=== PATIENT | female | born 2000 | race African-American/Black ===

== ENCOUNTER 2020-08-17 21:41 | Emergency (ER) | payer MEDICAID ==
--- NOTE | 2020-08-17 22:11 | ER Document Report ---
ED Psych Disorder / Suicide - General Chief Complaint: Psych Problem Stated Complaint: PSYCH EVAL Time Seen by Provider: 08/17/20 21:59 Mode of Arrival: Ambulatory Information source: Patient Notes: HPI; 20-year-old female presented to the emergency room with her mom and the police with suicidal ideation and suicide attempt x2 today. Per mom patient started to walk out in traffic during a latter-day service this evening also took a fork and knife in the attempt to stab her self. Patient has had previous suicide attempts. Recently relocated here from [place] is on Risperdal and trazodone. Patient states "I am hearing voices that are telling me to hurt myself". She denies any homicidal ideation. PE: Alert and oriented x3. Flat affect. Continues to have suicidal thoughts. Lungs: Clear to auscultation without rales, rhonchi, wheezes. Heart: Regular rate rhythm without murmurs, rubs, gallops. Patient will be put on IVC papers per Dr. Fuentes I have greeted and performed a rapid initial assessment of this patient. A comprehensive ED assessment and evaluation of the patient, analysis of test results and completion of the medical decision making process will be conducted by additional ED providers. I have specifically instructed the patient or family members with the patient to immediately return to any nursing staff should anything change in the patient's condition or with their chief complaint. TRAVEL OUTSIDE OF THE [place] IN LAST 30 DAYS: No
--- NOTE | 2020-08-17 22:15 | ER Document Report ---
ED Medical Screen (RME) - General Chief Complaint: Psych Problem Stated Complaint: PSYCH EVAL Time Seen by Provider: 08/17/20 21:59 Mode of Arrival: Ambulatory Information source: Patient, Relative Notes: HPI; 20-year-old female presents emergency room with her mom and police custody for suicidal ideation and suicide attempts earlier today. Per mom she tried to walk out in traffic earlier this evening during mandaen service later this evening she grabbed a fork and knife in an attempt to stab herself. Mom was able to stop both attempts. Patient has had previous suicide attempts by pj ing herself in the head. Patient states "I am hearing voices that are telling me to hurt myself". Patient continues to have suicidal thoughts. Denies any homicidal ideation. PE: Alert and oriented x3. Flat affect. Continues to have suicidal thoughts but denies any homicidal ideation. Lungs: Clear to auscultation without rales, rhonchi, wheezes. Heart: Regular rate rhythm without murmurs, rubs, gallops. Patient will be put on IV C papers per ED physician Dr. Mckeon. I have greeted and performed a rapid initial assessment of this patient. A comprehensive ED assessment and evaluation of the patient, analysis of test results and completion of the medical decision making process will be conducted by additional ED providers. I have specifically instructed the patient or family members with the patient to immediately return to any nursing staff should anything change in the patient's condition or with their chief complaint. TRAVEL OUTSIDE OF THE [place] IN LAST 30 DAYS: No
[2020-08-17 23:00] LABS: ABSOLUTE EOSINOPHILS # (AUTO) 0.1 10^3/uL (0.0-0.6); ABSOLUTE MONOCYTES (AUTO) 0.7 10^3/uL (0.1-1.4); BASOPHILS % (AUTO) 0.2 % (0-2); EOSINOPHILS % (AUTO) 1.6 % (0-6); HEMATOCRIT 34.6 % (36.0-47.0); HEMOGLOBIN 11.2 g/dL (12.0-15.5); MEAN CORPUSCULAR HGB CONC 32.3 g/dL (32.0-36.0); MEAN CORPUSCULAR VOLUME 71 fl (80-97); MONOCYTES % (AUTO) 10.8 % (3-13); PLATELET COUNT 248 10^3/uL (150-450); RED BLOOD COUNT 4.85 10^6/uL (3.72-5.28); RED CELL DISTRIBUTION WIDTH 15.2 % (11.5-14.0); SEGMENTED NEUTROPHILS % (AUTO) 58.4 % (42-78); TOTAL CELLS COUNTED % (AUTO) 100 %; WHITE BLOOD COUNT 6.9 10^3/uL (4.0-10.5)
[2020-08-17 23:26] LABS: ALBUMIN 4.5 g/dL (3.5-5.0); ALKALINE PHOSPHATASE 79 U/L (38-126); ANION GAP 12 (5-19); ASPARTATE AMINO TRANSFERASE 21 U/L (14-36); BILIRUBIN,DIRECT 0.2 mg/dL (0.0-0.4); BILIRUBIN,TOTAL 0.8 mg/dL (0.2-1.3); BLOOD UREA NITROGEN 14 mg/dL (7-20); CALCIUM 9.4 mg/dL (8.4-10.2); CARBON DIOXIDE 26 mmol/L (22-30); CHLORIDE 102 mmol/L (98-107); GLUCOSE 87 mg/dL (75-110); POTASSIUM 4.2 mmol/L (3.6-5.0); TOTAL PROTEIN 7.4 g/dL (6.3-8.2)
[2020-08-17 23:29] LABS: ACETAMINOPHEN < 10 ug/mL (10-30); ALCOHOL < 10 mg/dL (NONE DETECTED)
[2020-08-17 23:30] LABS: SALICYLATE < 1.0 mg/dL (2.0-20.0)
[2020-08-17 23:53] LABS: APPEARANCE,URINE CLOUDY; BILIRUBIN,URINE NEGATIVE (NEGATIVE); COLOR,URINE YELLOW; GLUCOSE, URINE NEGATIVE (NEGATIVE); KETONES,URINE 80 mg/dL (NEGATIVE); LEUKOCYTE ESTERASE,URINE NEGATIVE (NEGATIVE); NITRITE,URINE NEGATIVE (NEGATIVE); PROTEIN,URINE 100 mg/dL (NEGATIVE); URINE SPECIFIC GRAVITY 1.035
[2020-08-18 00:14] LABS: URINE AMPHETAMINES SCREEN NEGATIVE; URINE BARBITURATES SCREEN NEGATIVE; URINE BENZODIAZEPINES SCREEN NEGATIVE; URINE COCAINE SCREEN NEGATIVE; URINE MARIJUANA (THC) SCREEN NEGATIVE; URINE METHADONE SCREEN NEGATIVE; URINE PHENCYCLIDINE SCREEN NEGATIVE
[2020-08-18] MEDS ORDERED: LORAZEPAM 1 MG TABLET PO ONE (00:19)
--- NOTE | 2020-08-18 00:24 | EKG REPORT ---
SEVERITY:- NORMAL ECG - SINUS RHYTHM : Confirmed by: Janee Wang 18-Aug-2020 00:23:26
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
[2020-08-18] MEDS ORDERED: CHLORPROMAZINE HCL INJ 25 MG/1 ML AMPULE IM ONE ×2 (14:52→21:55)
--- NOTE | 2020-08-18 14:56 | ER Document Report ---
Doctor's Note Notes: 08/18/20 14:55 Patient is coming out of the room grabbing at the staff. I spoke with Dr. Salazar from the psychiatric team will give Thorazine 50 mg intramuscular at this time.
[2020-08-18] MEDS ORDERED: BENZTROPINE MESYLATE 1 MG TABLET PO ONE (21:53)
[2020-08-19] MEDS ORDERED: CHLORPROMAZINE HCL INJ 25 MG/1 ML AMPULE IM ONE (12:32)
[2020-08-19] MEDS ORDERED: CHLORPROMAZINE HCL INJ 25 MG/1 ML AMPULE ONE (12:32)
--- NOTE | 2020-08-19 12:34 | ER Document Report ---
Doctor's Note Notes: 08/19/20 12:33 Patient is again acting out following staff and attempting to grab at staff. Psychiatric team have not placed standing medications for this patient yet I will give the patient Thorazine as she seemed to respond well to that yesterday.
[2020-08-19] MEDS ORDERED: CHLORPROMAZINE HCL INJ 25 MG/1 ML AMPULE IM PRN (14:54)
[2020-08-19] MEDS ORDERED: CHLORPROMAZINE HCL INJ 25 MG/1 ML AMPULE IV SCH (15:00)
[2020-08-19] MEDS ORDERED: BENZTROPINE MESYLATE INJ 2 MG/2 ML AMPULE IM SCH (15:00)
[2020-08-19] MEDS: BENZTROPINE MESYLATE INJ 2 MG/2 ML AMPULE IM SCH (18:11)
[2020-08-19] MEDS: CHLORPROMAZINE HCL INJ 25 MG/1 ML AMPULE IM SCH ×2 (18:11→23:16)
[2020-08-20] MEDS: CHLORPROMAZINE HCL INJ 25 MG/1 ML AMPULE IM SCH ×4 (05:46→23:12)
[2020-08-20] MEDS: BENZTROPINE MESYLATE INJ 2 MG/2 ML AMPULE IM SCH ×2 (11:10→18:50)
--- NOTE | 2020-08-20 12:51 | PSYCHOLOGICAL NOTE ---
Psych Note - Psych Note Date seen by psych provider: 08/20/20 Time seen by psych provider: 10:45 Psych Note: Patient denied consent for mother to be part of plan of care Check in conducted with patient: Patient does engage with clinician this morning. Patient reports she has provider in [place], Ms. Meyers with [facility]. She reports she came to [facility] ED because she was trying to hurt herself. She denies this ever happening before or being inpatient psychiatric treatment previously (clinician notes patient has been inpatient psychiatric treatment per family approximately one year ago in [place]). Patient denied consent for her mother to part of her plan of care, she requests Ms. Meyers be included. Patient denies current thoughts of wanting to harm herself and denies any further questions or concerns at this time. Mood and affect are currently flat. Eye Contact is well maintained. Clinician spoke with patient's mother to provider general procedure information. Clinician explained that currently, the patient has denied consent for mother to part of plan of care. Clinician confirms patient will be asked again throughout the day and encourage the patient to provided consent for a local support. Patient is currently her own legal guardian, however, lives with her mother. Patient's mother reports she is her "youth career specialist." She requested information on how to obtain legal guardianship; contact information to [facility] is provided. Patient's mother confirms all questions have been addressed and current has no further questions or concerns. Medication recommendations per [facility]'s contracted psychiatrist are as follows: Thorazine 50mg every 6 hours Cogentin 1mg twice daily Impression/Plan: Patient is recommended for continued IVC. Patient only minimally engages with clinician. Paperwork has been faxed to [facility] and [facility] for placement consideration. Dr. Slaazar was consulted on the care and management of this patient; attending physician is in agreement with recommendations and disposition.
--- NOTE | 2020-08-20 18:56 | ER Document Report ---
Doctor's Note Notes: 08/20/20 18:56 Patient has been ambulatory today has not caused a significant disturbance requiring restraint. Has been evaluated by the psychiatric team who are attempting placement at [place] or [place].
[2020-08-21] MEDS: CHLORPROMAZINE HCL INJ 25 MG/1 ML AMPULE IM SCH ×2 (06:07→12:23)
[2020-08-21] MEDS: BENZTROPINE MESYLATE INJ 2 MG/2 ML AMPULE IM SCH (09:53)
--- NOTE | 2020-08-21 11:03 | PSYCHOLOGICAL NOTE ---
Psych Note - Psych Note Date seen by psych provider: 08/21/20 Time seen by psych provider: 10:35 Psych Note: Patient denied consent for mother to be part of plan of care Check in conducted with patient: Patient continues to present flat and has not been eating. patient denies any concerns currently. Patient has been demonstrating disorganized thought processes and in need of frequent redirection. Medication recommendations per [facility]'s contracted psychiatrist are as follows: Thorazine 50mg every 6 hours Cogentin 1mg twice daily Impression/Plan: Patient is recommended for continued IVC. Patient only minimally engages with clinician. Paperwork has been faxed to [facility] and [facility] for placement consideration. Dr. Salazar was consulted on the care and management of this patient; attending physician is in agreement with recommendations and disposition.
[2020-08-21] MEDS: CHLORPROMAZINE HCL 50 MG TABLET PO SCH ×2 (12:53→17:59)
--- NOTE | 2020-08-21 15:44 | ER Document Report ---
Doctor's Note Notes: 08/21/20 15:43 Patient is still ambulatory in the room but has not had any violent behavior so far today has taken her oral medications. Pending placement still per the psychiatric team
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
[2020-08-21] MEDS: BENZTROPINE MESYLATE 1 MG TABLET PO SCH (18:00)
[2020-08-22] MEDS: CHLORPROMAZINE HCL 50 MG TABLET PO SCH ×4 (01:11→17:57)
[2020-08-22] MEDS: BENZTROPINE MESYLATE 1 MG TABLET PO SCH ×2 (09:57→17:57)
--- NOTE | 2020-08-22 12:23 | ER Document Report ---
Doctor's Note Notes: 08/22/20 12:21 Patient's vital signs, previous labs, diagnostic imaging reviewed. Reviewed mental health notes, nurses notes and previous vital signs. Patient is in no distress at this time. Resting comfortably in the bed. Has no acute concerns. Patient resting comfortably. In no acute distress. Interacts appropriately with the provider. A&P: Pending mental health placement. 08/22/20 12:21
--- NOTE | 2020-08-22 21:05 | PSYCHOLOGICAL NOTE ---
Psych Note - Psych Note Date seen by psych provider: 08/22/20 Time seen by psych provider: 11:57 - Evaluation with patient from [id number]. Psych Note: Patient is a 20 year old female in the ED on a FULL Involuntary Commitment since 08/18/2020 for psychosis, suicidal ideation and history of Schizophrenia. Patient reported "good" when asked how she was doing today. She denied suicidal and homicidal ideation. Reminded her of when she was going into the hallways and other patients' rooms. Asked her what she felt was going on at that time. She responded with "I was hearing voices." When asked if she was currently hearing voices she said "no not now." She reported she felt she was better than when she first came in. She identified she saw her mother yesterday. As the afternoon went on observed patient often standing in her doorway. At one point a patient radiation safety officer had to redirect her back to her room and she seemed to listen after a couple prompts verses several. Attending medical staff noted they have to put time limits on her bathroom breaks as she will stay in there for long periods. Also medical staff reported patient does not seem to sleep much and has been picking at her meals which mother told medical staff is not typical of her (she normally has a healthy appetite). Mother also informed medical staff she felt a trigger to patient's crisis was her cousin passing away which could very well be. Clinical Presentation: Psychosis- Auditory command hallucinations Suicidal ideation with attempts (walking into traffic twice, putting butter knife to neck) History Of Schizophrenia Recent move (transition/adjustment) Impression/Plan: Recommendation to maintain FULL Involuntary Commitment. Patient has just started to answer all questions and follow redirection within a couple prompts versus several. Want to see some maintenance with this improved behavior. Mother informed medical staff she felt a trigger to crisis was patient's cousin passing away which could very well be the case. Consulted with Dr. Salazar regarding the management and care of patient. ED Physician in agreement with recommendations.
[2020-08-23] MEDS: CHLORPROMAZINE HCL 50 MG TABLET PO SCH ×4 (00:31→16:45)
[2020-08-23] MEDS: BENZTROPINE MESYLATE 1 MG TABLET PO SCH ×2 (09:50→18:06)
--- NOTE | 2020-08-23 12:33 | PSYCHOLOGICAL NOTE ---
Psych Note - Psych Note Date seen by psych provider: 08/23/20 Time seen by psych provider: 10:45 - Observation at 1045. Interaction with patient at 1053. Psych Note: Patient is a 20 year old female in the Emergency Department on Full Involuntary Commitment for psychosis, suicidal ideation and history of Schizophrenia. Observed patient standing in doorway of her room. She started to come out and the patient safety professional redirected her verbally to stay in room. Patient listened on the first prompt. Patient asked for a sandwich and medical staff noted she did not eat breakfast. Medical staff has reported and documented patient often just throws her food tray in trash as soon as it is provided to her. Patient safety professional offered patient a sandwich maybe 10 minutes after she asked for one and patient declined it. When this clinician asked patient if she wanted a sandwich she said no, said she didn't want anything to eat, then mentioned fruit. When asked why she throws her food trays away she stated "I don't like the food." She reported "I'm good" when asked how she was doing today. From [phone] called mother Devika ([phone]) to discuss potential plan of care for discharge tomorrow (08/24/2020). Mother was made aware of medications adjustments taking place this evening to prepare for discharge. She was informed how patient identified yesterday the reason she was walking out of her room.into the hallway/into other patients' rooms was because she was hearing voices. Also the reason she throws food trays away being because she does not like the hospital food. Mother made aware patient able to be redirected and without physical aggression the past 2-3 days. Mother was in agreement with discharge for tomorrow (08/24/2020). She stated she has [facility] an hour and a half away from [phone] so could come get patient after. Mother also noted patient has a telemed appointment Tuesday (08/25/2020) with her [place] [facility]. She stated they have done what is needed for Medicaid transition and just waiting for it to be effective. Clinical Presentation: Psychosis- Auditory command hallucinations Suicidal ideation with attempts (walking into traffic twice, putting butter knife to neck) History Of Schizophrenia Recent move (transition/adjustment) Medication recommendations made by the psychiatric medication provider Dr. Whitney BENITEZ, includes: Change Thorazine to 50MG every 8 hours scheduled for psychosis Change Cogentin to 1MG daily to curb tremor side effects often associated with antipsychotic medications Add Zyprexa 2.5MG twice a day for mood stabilization/address attentional issues/impulse control Add Clonidine 0.1MG at night for calming effect/sleep Impression/Plan: Recommendation to maintain FULL Involuntary Commitment. The past two days patient has shown improvement. Making additional medication changes today now that there has been stabilization with respect to psychosis (hearing voices), not becoming physical or hitting staff, and following redirec tion better. Plan to discharge to mother tomorrow (08/24/2020) given felt to be stabilized from a behavioral standpoint. Consulted with Dr. Salazar regarding the management and care of patient. ED Physician in agreement with recommendations.
[2020-08-23] MEDS ORDERED: CLONIDINE HCL 0.1 MG TABLET PO ONE (16:13)
--- NOTE | 2020-08-23 16:15 | ER Document Report ---
Doctor's Note Notes: 08/23/20 16:14 Patient's vital signs and previous labs, diagnostic images reviewed. Reviewed mental health notes, nurse's notes and previous providers notes. VSS. Pt is in no distress at this time. Denies any SI or HI. General: A&Ox3. Answers questions appropriately. Heart: RRR Lungs: CTAB Psych: Flat affect A/P: Continue monitoring and rec's per MH. Normal diet will likely discharge home.
[2020-08-23] MEDS: OLANZAPINE 2.5 MG TABLET PO SCH (18:06)
[2020-08-24] MEDS: CHLORPROMAZINE HCL 50 MG TABLET PO SCH ×3 (00:16→16:15)
[2020-08-24] MEDS: OLANZAPINE 2.5 MG TABLET PO SCH ×2 (09:57→17:22)
[2020-08-24] MEDS ORDERED: BENZTROPINE MESYLATE 1 MG TABLET PO SCH (10:00)
--- NOTE | 2020-08-24 13:18 | ER Document Report ---
Doctor's Note Notes: 08/24/20 13:16 Patient's vital signs previous labs, diagnostic imaging reviewed. Reviewed mental health notes, nurses notes and previous vital signs. Patient is in no distress at this time denies any SI or HI. CBC shows hemoglobin of 11.2. Recommend follow up for this. General: alert, oriented Lungs: No respiratory distress Psych: flat affect A&P: Patient has been medically cleared. Is also cleared by mental health. Medication recommendations by mental health ordered. Patient is ready for dc.
--- NOTE | 2020-08-24 19:01 | PSYCHOLOGICAL NOTE ---
Psych Note - Psych Note Date seen by psych provider: 08/24/20 Time seen by psych provider: 10:56 - Interaction and observation at 1056. Psych Note: Patient is a 20 year old female in the Emergency Department since the evening of 08/17/2020, on FULL Involuntary Commitment since 08/18/2020 for suicidal ideation, hearing voices and history of Schizophrenia. Yesterday (08/23/2020) medication adjustment took place to prepare for discharge home given patient is felt to be stabilized from a behavioral standpoint given no physical aggression (has not hit any staff since her first 2 days), being easily redirected (to include this morning when she walked out of her room and wanted to go outside twice), able to identify reasons for wandering out of room and into other patients' rooms was due to hearing voices and reason for throwing food trays away is due to not liking the food. Medications were adjusted yesterday (08/23/2020) to prepare for discharge. Also spoke to mother last evening in preparation for discharge. Mother stated she would be at [facility] an hour and a half away from [phone] and would come get patient after [facility]. Chart review revealed patient chewed up some of her dinner, spit it out, and then threw entire meal in the trash. She made frequent bathroom visits (note patient has been on her menses while in ED). Both of these things have been consistent while in the emergency department. She requested a shower this morning (shows wanting to tend to personal hygiene). This morning patient had 2 incidences where she walked out of her room and wanted to go outside but listened to redirection and did not become physical. Patient often stood in her doorway or in her room, staring off, but would answer with close ended responses when asked questions. She would at times make brief eye contact. Mood appeared depressed with flat affect which is a common negative symptom of Schizophrenia. Psychoeducated patient on the importance of taking her medications daily as directed, as well as eating meals and taking in fluids. Clinical Presentation: Psychosis- Auditory command hallucinations Suicidal ideation with attempts (walking into traffic twice, putting butter knife to neck) History Of Schizophrenia Recent move (transition/adjustment) Impression/Plan: Patient is cleared from acute psychiatric services. Recommendation to RESCIND FULL Involuntary Commitment. Plan to move forward with discharge as discussed with mother last evening via telephone. Patient has continued to be easily redirected without physical aggression the past 3 days. She is felt to be behaviorally stabilized as a result. She does present with depressed mood and flat affect which is a typical negative symptom of Schizophrenia. Medications adjusted for continued management at home. Patient has telemed appointment with [place] [facility] tomorrow (08/25/2020) per mother. Provided the outpatient mental health resource sheet which highlighted both local mobile crisis numbers and documented walk in time for [facility] (for when Medicaid transfers to [place]). Mother included in plan of care and provided transportation. Consulted with Dr. Salazar regarding the management and care of patient. ED Physician in agreement with recommendations.
[2020-08-24 20:50] VITALS: BP 131/91
== END 2020-08-24 20:45 | disposition home or self-care (01) ==
LOC: ER 21:41
DX: T14.91XA Suicide attempt, initial encounter (principal); X78.1XXA Intentional self-harm by knife, initial encounter; Y92.009 Unspecified place in unspecified non-institutional (private) residence as the place of occurrence of the external cause; F20.9 Schizophrenia, unspecified; D64.9 Anemia, unspecified; E86.0 Dehydration; R45.6 Violent behavior; R45.1 Restlessness and agitation; Z79.899 Other long term (current) drug therapy; Z78.1 Physical restraint status
CPT/HCPCS: 93005; 99284; 96372 ×3; 36415; 80307 ×4; 84703; 85025; 80053; 81001; 93010; J0515 ×3; J3230 ×4; J3490 ×6